=== PATIENT | male | born 2000 | race African-American/Black ===

== ENCOUNTER 2021-05-23 03:01 | Emergency (ER) | payer OTHER, SELFPAY ==
[2021-05-23 03:32] VITALS: BP_SYST 127
--- NOTE | 2021-05-23 03:35 | NUR ---
Patient triaged and placed under the care of care ambulance. VSS and patient appears in no acute distress at this time. Accompanied by staff , awaiting available bed, and MD notified of need for MSE. Patient awake, alert, oriented x 4. Patient denies harm to self. +superficial cuts to bilateral forearm. Patient was apparently found unconscious inside a motel by mother so she called 911. Patient was given 4mg of Narcan en route, became conscious. Patient denies pain, no other remarkable symptoms noted. Patient with IV to left hand, G20. 5150 hol written by Paulino FREEMAN.
[2021-05-23 06:12] LABS: BILIRUBIN,URINE NEGATIVE (NEGATIVE); BLOOD, URINE NEGATIVE (NEGATIVE); CLARITY/URINE CLEAR (CLEAR); COLOR,URINE YELLOW (YELLOW); GLUCOSE,URINE NEGATIVE (NEGATIVE); KETONES,URINE NEGATIVE (NEGATIVE); LEUKOCYTE ESTERASE ,URINE NEGATIVE (NEGATIVE); NITRITE, URINE NEGATIVE (NEGATIVE); PROTEIN URINE NEGATIVE (NEGATIVE); UROBILINOGEN,URINE 0.2 (0.2-1.0)
[2021-05-23 06:27] LABS: BARBITURATE, URINE NEGATIVE (NEG <=200); BENZODIAZEPINE, URINE NEGATIVE (NEG <=150); CANNABINOID, URINE NEGATIVE (NEG <=50); COCAINE, URINE NEGATIVE (NEG <=150); METHAMPHETAMINES SCREEN,URINE NEGATIVE (NEG <=500); OPIATE, URINE NEGATIVE (NEG <=100); PHENCYCLIDINE SCREEN,URINE NEGATIVE (NEG <=25); UR TRICYCLIC ANTIDEPRESSANTS NEGATIVE (NEG <=300); URINE AMPHETAMINE NEGATIVE (NEG <=500); URINE METHADONE NEGATIVE (NEG <=200); URINE OXYCODONE SCREEN NEGATIVE (NEG <=100); URINE PROPOXYPHENE SCREEN NEGATIVE (NEG <=300)
[2021-05-23 08:14] LABS: BASOPHILS % (AUTO) 0.4 % (0.0-2.0); EOSINOPHILS # (AUTO) 0.1 K/uL (0.0-0.4); EOSINOPHILS % (AUTO) 1.4 % (0.0-4.0); HEMATOCRIT 46.9 % (36-54); HEMOGLOBIN 15.9 g/dL (14.0-18.0); LYMPHOCYTES # (AUTO) 1.5 K/uL (1.0-5.5); LYMPHOCYTES % (AUTO) 30.4 % (20.5-51.5); MEAN CORPUSCULAR HEMOGLOBIN 29 pg (27-31); MEAN CORPUSCULAR HGB CONC 34 % (32-36); MEAN CORPUSCULAR VOLUME 87 fL (79.0-98.0); MONOCYTES # (AUTO) 0.4 K/uL (0.0-1.0); MONOCYTES % (AUTO) 7.9 % (1.7-9.3); NEUTROPHILS % (AUTO) 59.9 % (40.0-70.0); PLATELET COUNT (AUTO) 227 K/uL (130-430); RED BLOOD CELL COUNT(AUTO) 5.42 MIL/uL (4.2-6.2); WHITE BLOOD COUNT (AUTO) 5.1 K/uL (4.8-10.8)
[2021-05-23 08:22] LABS: ANION GAP 11 (5-15); CALCIUM 8.9 mg/dL (8.4-11.0); CHLORIDE 104 mmol/L (98-107); GLUCOSE 82 mg/dL (70-99); POTASSIUM 3.8 mmol/L (3.5-5.1); SODIUM SERUM 141 mmol/L (136-145); UREA NITROGEN, BLOOD 9 mg/dL (8-21)
[2021-05-23 08:24] LABS: INR 0.9 (0.80-1.20); PROTHROMBIN TIME 10.1 SECS (9.5-12.5)
[2021-05-23 08:32] LABS: GFR AFRICAN AMERICAN 121 mL/min (>90)
[2021-05-23 08:33] LABS: ALANINE AMINOTRANSFERASE 17 U/L (12-78); ALCOHOL, BLOOD 82 mg/dL (<10); ASPARTATE AMINOTRANSFERASE 17 U/L (10-37); TOTAL BILIRUBIN 0.5 mg/dL (0.0-1.0)
[2021-05-23 08:34] LABS: ACETAMINOPHEN < 1 ug/mL (1-30)
--- NOTE | 2021-05-23 09:10 | NUR ---
pt. moved from gurney to wheelchair, no request
--- NOTE | 2021-05-23 09:38 | NUR ---
pt. to triage room for privacy for tele pysch. consult, EMT present for safety
--- NOTE | 2021-05-23 13:35 | NUR ---
TELE-PSYCH SPEAKING WITH PT
[2021-05-23 14:44] VITALS: BP_SYST 122
--- NOTE | 2021-05-23 14:46 | NUR ---
Patient given written and verbal discharge instructions and verbalizes understanding. MARGOT VASQUEZ AND BRADY ACUNA discussed with patient the results and treatment provided. Patient in stable condition. Patient educated on pain management and to follow up with PMD. Pain Scale 0. Opportunity for questions provided and answered. Medication side effect fact sheet provided.
== END 2021-05-23 14:46 | disposition home or self-care (01) ==
LOC: SED 03:01
DX: T50.991A Poisoning by other drugs, medicaments and biological substances, accidental (unintentional), initial encounter (principal); Z79.899 Other long term (current) drug therapy; Y92.89 Other specified places as the place of occurrence of the external cause
CPT/HCPCS: 36415; 80053; 80307; 81003; 84484; 85025; 85610; 85730; 93005; 99284; G0480; G0481; G0482